=== PATIENT | male | born 1975 | race Caucasian/White ===

== ENCOUNTER 2018-12-10 18:11 | Inpatient (IN) | payer OTHER ==
[~2018-12-10] VITALS: Ht 160 cm; Wt 54.0 kg
[2018-12-10 18:16] VITALS: BP 122/97; BP 148/109
[2018-12-10] MEDS ORDERED: SYMBICORT160 MCG/4. INH (18:20)
[2018-12-10] MEDS ORDERED: ZYRTEC10 M5 PO (18:20)
[2018-12-10] MEDS ORDERED: ALBUTEROL2.5 MG/0.1 INH (18:20)
[2018-12-11 02:29] VITALS: BP 118/83
[2018-12-11 06:00] VITALS: BP 131/92
[2018-12-11 06:55] LABS: ABSOLUTE BASOPHILS 0.1 thou/uL (0.0-0.2); ABSOLUTE EOSINOPHILS 0.4 thou/uL (0.0-0.7); ABSOLUTE LYMPHOCYTES 1.2 thou/uL (0.8-5.3); ABSOLUTE MONOCYTES 0.7 thou/uL (0.0-1.2); ABSOLUTE NEUTROPHILS 5.5 thou/uL (1.6-8.1); BASOPHILS 0.8 %; EOSINOPHILS 4.5 %; HEMATOCRIT 37.9 % (42.0-52.0); HEMOGLOBIN 11.9 gm/dL (14.0-18.0); LYMPHOCYTES 15.8 %; MCH 25.8 pg (26.0-34.0); MCHC 31.5 g/dL (28.0-37.0); MCV 81.8 fL (80.0-100.0); MONOCYTES 9.3 %; MPV 6.7 fl. (7.2-11.1); NUCLEATED RBCS 0 /100WBC; PLATELET COUNT* 558 thou/uL (150-400); POLYS 69.6 %; RBC 4.63 mil/uL (4.50-6.00); RDW-CV 16.3 % (10.5-14.5); WBC 7.9 thou/uL (4.0-11.0)
[2018-12-11 07:03] LABS: APTT 30.5 Seconds (25.0-31.3); INR 1.1
[2018-12-11 07:11] LABS: ALBUMIN 2.8 g/dL (3.4-5.0); CALCIUM 9.6 mg/dL (8.5-10.1); CREATININE 0.9 mg/dL (0.6-1.3); POTASSIUM 3.7 mmol/L (3.5-5.1); TOTAL BILIRUBIN 0.1 mg/dL (<0.1-1.0); TOTAL PROTEIN 7.4 g/dL (6.4-8.2)
[2018-12-11 07:13] LABS: ACETAMINOPHEN < 2 ug/mL (10-30); ALCOHOL < 10 mg/dL (<10); SALICYLATE < 2.8 mg/dL (2.8-20.0)
[2018-12-11 07:43] VITALS: BP 130/77
[2018-12-11 08:05] VITALS: BP 130/87
[2018-12-11] MEDS ORDERED: SINGULAIR 10 MG10 M1 PO (08:19)
[2018-12-11 15:12] LABS: URINE BILIRUBIN NEGATIVE (Negative); URINE BLOOD NEGATIVE (Negative); URINE CLARITY CLEAR; URINE COLOR YELLOW; URINE GLUCOSE-RANDOM NEGATIVE (Negative); URINE KETONES NEGATIVE (Negative); URINE LEUKOCYTES-REFLEX NEGATIVE (Negative); URINE NITRITE-REFLEX NEGATIVE (Negative); URINE PROTEIN NEGATIVE (Negative); URINE SPECIFIC GRAVITY 1.025 (1.005-1.030); URINE UROBILINOGEN 0.2 E.U./dl (0.2-1.0)
[2018-12-11 15:21] LABS: AMP/METHAMP Negative (Negative); BARBITURATES Negative (Negative); BENZODIAZEPINES POSITIVE (Negative); COCAINE Negative (Negative); METHADONE Negative (Negative); OPIATES Negative (Negative); PCP Negative (Negative); THC Negative (Negative)
[2018-12-11 16:20] VITALS: BP 113/86
[2018-12-11 20:35] VITALS: BP 107/86
[2018-12-12 05:05] LABS: CALCIUM 9.3 mg/dL (8.5-10.1); CREATININE 0.8 mg/dL (0.6-1.3); MAGNESIUM 2.1 mg/dL (1.8-2.4)
[2018-12-12 05:23] LABS: ABSOLUTE EOSINOPHILS 0.5 thou/uL (0.0-0.7); ABSOLUTE LYMPHOCYTES 1.2 thou/uL (0.8-5.3); ABSOLUTE MONOCYTES 0.9 thou/uL (0.0-1.2); ABSOLUTE NEUTROPHILS 5.9 thou/uL (1.6-8.1); BASOPHILS 0.6 %; EOSINOPHILS 5.6 %; HEMATOCRIT 37.3 % (42.0-52.0); HEMOGLOBIN 11.8 gm/dL (14.0-18.0); LYMPHOCYTES 14.4 %; MCH 26.1 pg (26.0-34.0); MCHC 31.7 g/dL (28.0-37.0); MCV 82.4 fL (80.0-100.0); MONOCYTES 10.4 %; MPV 7.1 fl. (7.2-11.1); NUCLEATED RBCS 0 /100WBC; PLATELET COUNT* 518 thou/uL (150-400); RBC 4.52 mil/uL (4.50-6.00); RDW-CV 16.5 % (10.5-14.5); WBC 8.6 thou/uL (4.0-11.0)
[2018-12-12 05:24] LABS: POTASSIUM 4.7 mmol/L (3.5-5.1)
[2018-12-12 07:20] VITALS: BP 127/79
[2018-12-12 11:30] VITALS: BP 113/80
[2018-12-12] MEDS ORDERED: TRANSDERM-SCOP1 EACH TRANSDERM (14:02)
[2018-12-12] MEDS ORDERED: FLONASE 0.05%50 MCG NASAL (14:03)
[2018-12-12] MEDS ORDERED: AUGMENTIN 875-1 EACH PO (14:03)
[2018-12-12 14:28] VITALS: BP 113/80
--- NOTE | 2018-12-13 14:34 | CON ---
[facility] [address] [place] [address] CONSULTATION Name: YOLANDA CLARK Room: [address] [place] .R.#: [id number] Admission: 12/10/18 Attend Phys: Bing Acharya Discharge: 12/12/18 Date of : 77 Report #: [id number] THIS REPORT FOR: //name// CC: JULIA physician/PCP Carlos Chaney DATE OF SERVICE: 12/11/2018 HISTORY OF PRESENT ILLNESS: This is a 43-year-old male patient who was evaluated by me for any neurological etiology for the patient's dizziness. He indicates that he got off the work and drank 3 beers. Subsequently, the patient noticed that he was dizzy. Before feeling dizzy, he had some unusual heaviness in the right ear. He did not have any pain there. Symptoms have much improved since that time. He underwent an MRI of the brain, which was unremarkable. His symptoms were severe, but has mostly resolved since then. REVIEW OF SYSTEMS: Indicates that the patient is healthy. He does drink in moderation and he smokes. He never had any ENT problems before. He is much improved. A 14-point review of system is otherwise unremarkable. PAST MEDICAL HISTORY: Negative for this kind of symptom. FAMILY HISTORY: Negative for any early age stroke. SOCIAL HISTORY: The patient does drink alcohol in moderation and he does smoke. PHYSICAL EXAMINATION: NEUROLOGIC: Indicates he is alert and responsive. He can follow simple commands. His speech, concentration, fund of knowledge and memory is at his baseline. Cranial nerve examination 2-12 looks unremarkable. His strength, sensation, reflexes and tone in all 4 extremities looks unremarkable. There is no meningeal sign. I could not look at the patient's fundus. He has no edema, cyanosis or jaundice. VITAL SIGNS: Blood pressure is 113/86 and a pulse rate is 110, temperature is 98.2. LABORATORY DATA: Albumin is trace low at 2.8. Platelet count is somewhat high at 558. IMPRESSION: The patient's symptoms are most likely related to some ENT pathology. I will suggest ENT consult. If they find any ENT pathology, then they can continue to treat it. If they do not find any ENT pathology, [place] [id number] CONSULTATION Name: YOLANDA CLARK Room: [address]#: [id number] Admission: 12/10/18 Attend Phys: Bing Acharya Discharge: 12/12/18 Date of : 77 Report #: [id number] discuss this patient with you and I discussed discussed this plan with the patient and he wants to follow this plan. <ELECTRONICALLY SIGNED> By: Alek Garay MD 12/13/18 [id number] Garay MD /nt
== END 2018-12-12 16:30 | disposition home or self-care (01) | DRG 149 ==
LOC: M.ERS 18:11 → M.ORTHSURG 21:55 → M.TBA-ER 21:55 → M.ORTHSURG 21:55 → M.TBA-ER 12-11 07:53 → M.ORTHSURG 12-11 07:53
PROVIDERS: Family Medicine; Personal Emergency Response Attendant; ADMIT Internal Medicine
DX: H81.10 Benign paroxysmal vertigo, unspecified ear (principal); E44.1 Mild protein-calorie malnutrition; J32.9 Chronic sinusitis, unspecified; F17.210 Nicotine dependence, cigarettes, uncomplicated; J45.909 Unspecified asthma, uncomplicated; Z79.899 Other long term (current) drug therapy; Z68.21 Body mass index [BMI] 21.0-21.9, adult